=== PATIENT | female | born 1965 | race Caucasian/White ===

== ENCOUNTER 2022-12-05 06:14 | Day surgery (SDC) | payer BC ==
[2022-11-24 10:01] VITALS: BMI 29.2
[2022-12-05] MEDS ORDERED: CELECOXIB 200 MG CAPSULE ONE (06:29)
[2022-12-05] MEDS ORDERED: ceFAZolin SODIUM 1 GM VIAL ONE ×2 (07:09→08:16)
[2022-12-05] MEDS ORDERED: THROMBIN (BOVINE) 5,000 UNIT VIAL TP ONE (07:09)
[2022-12-05] MEDS ORDERED: VANCOMYCIN 1,000 MG VIAL (RESTRICTED TO ID ONLY) ONE (07:09)
[2022-12-05] MEDS ORDERED: BUPIVACAINE LIPOSOME/PF (EXPAREL) 266 MG/20 ML VIAL ONE (07:45)
[2022-12-05] MEDS ORDERED: MIDAZOLAM HCL 2 MG/2 ML SINGLE DOSE VIAL ONE (07:45)
[2022-12-05] MEDS ORDERED: BUPIVACAINE HCL/PF 0.5% (5MG/ML) 10 ML VIAL ONE (07:46)
[2022-12-05] MEDS ORDERED: ONDANSETRON 4 MG/2 ML VIAL IVPUSH PRN (07:54)
[2022-12-05] MEDS ORDERED: CEFAZOLIN 2 GM in DEXTROSE 5%-WATER - 50 ML IVPB ONE (08:16)
[2022-12-05] MEDS ORDERED: TRANEXAMIC ACID 1000 MG/10 ML VIAL ONE (08:16)
[2022-12-05] MEDS ORDERED: DEXAMETHASONE SOD PHOSPHATE 4 MG/1 ML VIAL ONE (08:16)
[2022-12-05] MEDS ORDERED: PROPOFOL 20 ML ONE ×2 (08:21→08:50)
[2022-12-05] MEDS ORDERED: ACETAMINOPHEN INJECTION 100 ML IVPB ONE ×2 (11:07→11:30)
[2022-12-05] MEDS: ACETAMINOPHEN 1000 MG/100 ML BAG IVPB ONE ×2 (11:35→13:34)
[2022-12-05] MEDS: LACTATED RINGERS SOLUTION 1,000 ML IV SCH ×2 (12:00→15:47)
[2022-12-05] MEDS: KETOROLAC TROMETHAMINE 30 MG/1 ML VIAL IVPUSH SCH ×3 (12:05→18:23)
[2022-12-05] MEDS: PANTOPRAZOLE 40 MG TABLET PO SCH (13:33)
[2022-12-05] MEDS: SENNOSIDES/DOCUSATE COMBO (SENNA PLUS) TABLET (UD) PO SCH ×2 (13:33→21:29)
[2022-12-05] MEDS: VALSARTAN 160 MG TABLET PO SCH (13:33)
[2022-12-05] MEDS: HYDROCHLOROTHIAZIDE 25 MG TABLET (FP) PO SCH (13:33)
[2022-12-05] MEDS: MULTIVITAMINS (DAILY MVI) TABLET (FP) PO SCH (13:34)
[2022-12-05] MEDS: oxyCODONE HCL 5 MG TABLET PO PRN ×3 (15:43→21:28)
[2022-12-05] MEDS: CEFAZOLIN SODIUM 2 GM in DEXTROSE 5%-WATER 100 ML IVPB SCH (16:00)
[2022-12-05] MEDS: CELECOXIB 200 MG CAPSULE PO ONE ×2 (21:18→21:25)
[2022-12-05] MEDS: TRANEXAMIC ACID 1000 MG/10 ML VIAL IVPUSH ONE ×2 (21:19→23:09)
[2022-12-05] MEDS: ACETAMINOPHEN 500 MG TABLET (FP) PO SCH (21:28)
[2022-12-05] MEDS: oxyCODONE HCL 10 MG SUSTAINED ACTING TABLET PO SCH (21:29)
[2022-12-06] MEDS: CEFAZOLIN SODIUM 2 GM in DEXTROSE 5%-WATER 100 ML IVPB SCH (00:53)
[2022-12-06] MEDS: ACETAMINOPHEN 500 MG TABLET (FP) PO SCH ×4 (03:00→21:15)
[2022-12-06] MEDS: oxyCODONE HCL 5 MG TABLET PO PRN ×2 (05:39→15:24)
[2022-12-06 07:39] LABS: HEMATOCRIT 31.7 % (32.4-45.2); MCH 32.7 pg (25.7-33.7); MCHC 34.6 g/dl (32.0-36.0); MEAN CELL VOLUME 94.5 fl (80-96); MEAN PLT VOLUME 9.2 fl (7.5-11.1); PLATELET COUNT 81.1 10^3/uL (134-434); RBC 3.35 10^6/uL (3.60-5.2); RDW 13.1 % (11.6-15.6); WHITE BLOOD COUNT 9.9 10^3/uL (4.0-10.8)
[2022-12-06] MEDS: SENNOSIDES/DOCUSATE COMBO (SENNA PLUS) TABLET (UD) PO SCH ×2 (09:12→21:15)
[2022-12-06] MEDS: PANTOPRAZOLE 40 MG TABLET PO SCH (09:12)
[2022-12-06] MEDS: VALSARTAN 160 MG TABLET PO SCH (09:12)
[2022-12-06] MEDS: ASPIRIN 325 MG TABLET PO SCH (09:13)
[2022-12-06] MEDS: HYDROCHLOROTHIAZIDE 25 MG TABLET (FP) PO SCH (09:13)
[2022-12-06] MEDS: MULTIVITAMINS (DAILY MVI) TABLET (FP) PO SCH (09:13)
[2022-12-06] MEDS: oxyCODONE HCL 10 MG SUSTAINED ACTING TABLET PO SCH ×2 (09:13→21:15)
[2022-12-07] MEDS: ACETAMINOPHEN 500 MG TABLET (FP) PO SCH ×4 (03:05→21:37)
[2022-12-07 07:25] LABS: HEMOGLOBIN 10.5 G/dL (10.7-15.3); MCH 32.2 pg (25.7-33.7); MCHC 33.8 g/dl (32.0-36.0); MEAN CELL VOLUME 95.3 fl (80-96); MEAN PLT VOLUME 8.9 fl (7.5-11.1); PLATELET COUNT 84.8 10^3/uL (134-434); RBC 3.25 10^6/uL (3.60-5.2)
[2022-12-07] MEDS: oxyCODONE HCL 5 MG TABLET PO PRN (08:33)
[2022-12-07] MEDS: ASPIRIN 325 MG TABLET PO SCH (08:33)
[2022-12-07] MEDS: HYDROCHLOROTHIAZIDE 25 MG TABLET (FP) PO SCH (09:10)
[2022-12-07] MEDS: PANTOPRAZOLE 40 MG TABLET PO SCH (09:10)
[2022-12-07] MEDS: SENNOSIDES/DOCUSATE COMBO (SENNA PLUS) TABLET (UD) PO SCH ×2 (09:10→21:37)
[2022-12-07] MEDS: VALSARTAN 160 MG TABLET PO SCH (09:10)
[2022-12-07] MEDS: MULTIVITAMINS (DAILY MVI) TABLET (FP) PO SCH (09:10)
[2022-12-07] MEDS: oxyCODONE HCL 10 MG SUSTAINED ACTING TABLET PO SCH ×2 (09:21→21:37)
[2022-12-08] MEDS: ACETAMINOPHEN 500 MG TABLET (FP) PO SCH ×3 (06:03→14:57)
[2022-12-08] MEDS: ASPIRIN 325 MG TABLET PO SCH (08:15)
[2022-12-08] MEDS: SENNOSIDES/DOCUSATE COMBO (SENNA PLUS) TABLET (UD) PO SCH ×2 (09:30→22:49)
[2022-12-08] MEDS: HYDROCHLOROTHIAZIDE 25 MG TABLET (FP) PO SCH (09:30)
[2022-12-08] MEDS: VALSARTAN 160 MG TABLET PO SCH (09:30)
[2022-12-08] MEDS: PANTOPRAZOLE 40 MG TABLET PO SCH (09:30)
[2022-12-08] MEDS: MULTIVITAMINS (DAILY MVI) TABLET (FP) PO SCH (09:30)
[2022-12-08] MEDS: oxyCODONE HCL 10 MG SUSTAINED ACTING TABLET PO SCH (09:31)
[2022-12-09] MEDS: ASPIRIN 325 MG TABLET PO SCH (08:16)
[2022-12-09] MEDS: HYDROCHLOROTHIAZIDE 25 MG TABLET (FP) PO SCH (10:03)
[2022-12-09] MEDS: SENNOSIDES/DOCUSATE COMBO (SENNA PLUS) TABLET (UD) PO SCH ×2 (10:03→21:03)
[2022-12-09] MEDS: MULTIVITAMINS (DAILY MVI) TABLET (FP) PO SCH (10:04)
[2022-12-09] MEDS: PANTOPRAZOLE 40 MG TABLET PO SCH (10:04)
[2022-12-09] MEDS: VALSARTAN 160 MG TABLET PO SCH (10:04)
[2022-12-10] MEDS: ASPIRIN 325 MG TABLET PO SCH (08:11)
[2022-12-10] MEDS: PANTOPRAZOLE 40 MG TABLET PO SCH (09:37)
[2022-12-10] MEDS: MULTIVITAMINS (DAILY MVI) TABLET (FP) PO SCH (09:37)
[2022-12-10] MEDS: VALSARTAN 160 MG TABLET PO SCH (09:38)
[2022-12-10] MEDS: HYDROCHLOROTHIAZIDE 25 MG TABLET (FP) PO SCH (09:38)
[2022-12-10] MEDS: SENNOSIDES/DOCUSATE COMBO (SENNA PLUS) TABLET (UD) PO SCH ×2 (09:39→21:23)
[2022-12-11] MEDS: VALSARTAN 160 MG TABLET PO SCH (09:52)
[2022-12-11] MEDS: SENNOSIDES/DOCUSATE COMBO (SENNA PLUS) TABLET (UD) PO SCH (09:52)
[2022-12-11] MEDS: ASPIRIN 325 MG TABLET PO SCH (09:52)
[2022-12-11] MEDS: HYDROCHLOROTHIAZIDE 25 MG TABLET (FP) PO SCH (09:53)
[2022-12-11] MEDS: PANTOPRAZOLE 40 MG TABLET PO SCH (09:53)
[2022-12-11] MEDS: MULTIVITAMINS (DAILY MVI) TABLET (FP) PO SCH (09:54)
[2022-12-11 11:57] VITALS: RESP 18
[2022-12-11 14:44] VITALS: BP 141/67; PULSE 69; TEMP 98.6
== END 2022-12-11 16:55 | disposition home health service (06) ==
LOC: FASUSAT 06:14 → FM/S 12:16 → FASUSAT 12-11 16:55
PROVIDERS: ATTEND Orthopaedic Surgery
PROC: 8E0Y0CZ Robotic Assisted Procedure of Lower Extremity, Open Approach (ICD-10-PCS; 2022-12-05)
PROC: 0SRD0J9 Replacement of Left Knee Joint with Synthetic Substitute, Cemented, Open Approach (ICD-10-PCS; principal; 2022-12-05 08:29)
DX: M17.12 Unilateral primary osteoarthritis, left knee (principal)
CPT/HCPCS: 20985; 27447; C1776; S2900; 36415; 73560-TC-LT-FY; 85027; 94760; 97010-GP; 97116-GP; 97162-GP; C1713; C1889